=== PATIENT | male | born 1965 | race Caucasian/White ===

== ENCOUNTER 2022-05-11 19:19 | Emergency (ER) | payer BC ==
[2022-05-11 20:32] LABS: #Eosinphils 0.2 10x3/uL (0.0-0.5); #Monocytes 0.6 10x3/uL (0.0-1.1); #Neutrophils 3.7 10x3/uL (1.5-8.4); %Basophils 0.6 % (0.0-2.0); %Eosinophils 3.2 % (0.0-6.0); %Lymphocytes 26.2 % (18.0-47.0); %Neutrophils 59.8 % (40.0-75.0); Hemoglobin 15.6 g/dL (13.5-17.5); Mean Corpuscular HGB CONC 34.7 g/dL (32.0-36.0); Mean Corpuscular Volume 92.4 fl (81.2-95.1); Mean Platelet Volume 11.1 fl (7.4-10.4); Platelet Count 167 10x3/uL (150-450); RBC Distribution Width 12.9 % (11.5-14.5); Red Blood Cell (RBC) Count 4.87 10x6/uL (4.32-5.72); White Blood Cell (WBC) Count 6.2 10x3/uL (3.5-10.5)
[2022-05-11 20:55] LABS: ALT (SGPT) 28 U/L (8-55); AST (SGOT) 18 U/L (5-34); Albumin 4.4 g/dL (3.5-5.0); Alkaline Phosphatase 63 U/L (40-110); Anion Gap 15 mmol/L (10-20); BUN (Urea Nitrogen) 18 mg/dL (8.4-25.7); Bilirubin, Total 0.6 mg/dL (0.2-1.2); Calc. Creatinine Clearance 0 mL/min (70-130); Calcium 9.3 mg/dL (7.8-10.44); Carbon Dioxide 23 mmol/L (22-29); Chloride 104 mmol/L (98-107); Globulin 2.6 g/dL (2.4-3.5); Glucose 87 mg/dL (70-105); Magnesium 2.3 mg/dL (1.6-2.6); Potassium 4.1 mmol/L (3.5-5.1); Sodium 138 mmol/L (136-145)
== END 2022-05-11 21:56 | disposition home or self-care (01) ==
LOC: CSHERS 19:19
DX: E86.0 Dehydration (principal)
CPT/HCPCS: 80053; 83735; 84484; 85025; 93005; 96360

== ENCOUNTER 2024-09-27 14:21 | Outpatient (CLI) | payer BC | END 2024-09-27 14:22 | disposition home or self-care (01) | LOC: CSHULT 14:21 | PROVIDERS: ATTEND Family Medicine | DX: R80.9 Proteinuria, unspecified (principal); M54.50 Low back pain, unspecified | CPT/HCPCS: 76770 ==

== ENCOUNTER 2025-10-03 09:55 | Outpatient (CLI) | payer BC | END 2025-10-03 09:56 | disposition home or self-care (01) | LOC: CSHSLEEP 09:55 | PROVIDERS: ATTEND Family Medicine | DX: G47.33 Obstructive sleep apnea (adult) (pediatric) (principal); R53.83 Other fatigue; F43.9 Reaction to severe stress, unspecified | CPT/HCPCS: 95800 ==